=== PATIENT | female | born 2000 ===

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

== ENCOUNTER 2018-07-10 12:34 | Emergency (ER) | payer MEDICAID ==
[2018-07-10 12:35] VITALS: BMI 23.0
[2018-07-10 12:37] VITALS: RESP 19; TEMP 97.8
--- NOTE | 2018-07-10 13:03 | ED PDOC ---
HPI: Allergic Reaction Time Seen by Provider: 07/10/18 12:42 Chief Complaint (Nursing): Allergic Reaction Chief Complaint (Provider): Itchiness after dayquil History Per: Patient History/Exam Limitations: no limitations Onset/Duration Of Symptoms: Days Current Symptoms Are (Timing): Still Present Possible Cause: Medication Associated Symptoms: Skin Rash, Itching, Redness. denies: Trouble Swallowing Home/EMS Treatment: Benadryl (50mg) Additional Complaint(s): 17 yo female presents after feeling itchiness and having rednes on upper extremities after taking dayquil. Pt states this happens after taking medications sometimes. Pt states felt itchy after 5 minutes, took benadryl approx 10 minutes after that. Pt states it was approx 35 minutes since taking the dayquil. Pt denies tingling in the throat of mouth. Pt denies SOB. Past Medical History Reviewed: Historical Data, Nursing Documentation, Vital Signs Vital Signs: Last Vital Signs Temp 97.8 F 07/10/18 12:37 Pulse 97 H 07/10/18 12:37 Resp 19 07/10/18 12:37 BP 151/81 H 07/10/18 12:37 Pulse Ox 100 07/10/18 12:37 Primary Care Provider: FAMILY PROVIDER,NO - Medical History PMH: No Chronic Diseases Denies: Asthma - Surgical History Surgical History: No Surg Hx - Family History Family History: States: Unknown Family Hx - Home Medications Home Medications: Ambulatory Orders Medication Instructions Recorded Albuterol HFA [Ventolin HFA 90 2 puff IH [id number] PRN #1 inhaler 11/27/16 mcg/actuation (8 g)] Azithromycin [Zithromax] 250 mg PO DAILY #6 tab 11/27/16 Prednisone [Deltasone] 3 tab PO DAILY #15 tablet 11/27/16 Pseudoephedrine [Sudafed Tab] 60 mg PO Q6 PRN #24 tab 11/27/16 DiphenhydrAMINE [Benadryl] 50 mg PO Q6H PRN #20 cap 07/10/18 Famotidine [Pepcid] 20 mg PO DAILY #5 tab 07/10/18 predniSONE [predniSONE Tab] 20 mg PO DAILY #12 tab 07/10/18 - Allergies Allergies/Adverse Reactions: Allergies Allergy/AdvReac Type Severity Reaction Status Date / Time No Known Allergies Allergy Verified 07/10/18 12:37 Review of Systems ROS Statement: Except As Marked, All Systems Reviewed And Found Negative Constitutional: Negative for: Fever, Chills Gastrointestinal: Negative for: Nausea, Vomiting, Abdominal Pain Genitourinary Female: Negative for: Dysuria, Frequency Skin: Positive for: Rash, Other (Itchiness ) Physical Exam - Reviewed Nursing Documentation Reviewed: Yes Vital Signs Reviewed: Yes - Physical Exam Appears: Positive for: Well, Non-toxic, No Acute Distress Head Exam: Positive for: ATRAUMATIC, NORMAL INSPECTION, NORMOCEPHALIC Skin: Positive for: Warm, Rash. Negative for: Normal Color Eye Exam: Positive for: Normal appearance ENT: Positive for: Normal ENT Inspection, Pharynx Is Neck: Positive for: Normal, Painless ROM Cardiovascular/Chest: Positive for: Regular Rate, Rhythm Respiratory: Positive for: Normal Breath Sounds. Negative for: Accessory Muscle Use, Respiratory Distress Back: Positive for: Normal Inspection Extremity: Positive for: Normal ROM Neurological/Psych: Positive for: Awake, Alert, Normal Tone - ECG O2 Sat by Pulse Oximetry: 100 Pulse Ox Interpretation: Normal - Progress ED Course And Treament: Lungs continue to be clear throughout visit. PT reports feeling much better. Re-evaluation Time: 13:39 Condition: Re-examined Disposition - Clinical Impression Clinical Impression: Allergic reaction - Patient ED Disposition Is Patient to be Admitted: No Counseled Patient/Family Regarding: Diagnosis, Need For Followup, Rx Given - Disposition Referrals: [facility] [Outside] Disposition: Routine/Home Disposition Time: 13:31 Condition: GOOD Prescriptions: DiphenhydrAMINE [Benadryl] 50 mg PO Q6H PRN #20 cap PRN Reason: Itching / Pruritus Famotidine [Pepcid] 20 mg PO DAILY #5 tab predniSONE [predniSONE Tab] 20 mg PO DAILY #12 tab Instructions: Allergy Skin Testing, Drug Allergy Forms: [employer] (Danish)
[2018-07-10 15:07] VITALS: BP 132/74; PULSE 79; O2SAT 98
== END 2018-07-10 14:50 | disposition home or self-care (01) ==
LOC: H.ER 12:34
DX: T78.40XA Allergy, unspecified, initial encounter (principal)
CPT/HCPCS: 81025; 96372; 99283; J2930